=== PATIENT | male | born 1965 | race Caucasian/White ===

== ENCOUNTER 2017-01-16 01:22 | Emergency (ER) | payer SELFPAY ==
[~2017-01-16] VITALS: Ht 177.8 cm; Wt 72.6 kg
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
[2017-01-16] MEDS ORDERED: IBUPROFEN 600 MG TABLET PO ONE ×2 (04:21→04:30)
--- NOTE | 2017-01-16 04:24 | NUR ---
MEDICATED PATIENT ORDERED BY DR WHITING.
--- NOTE | 2017-01-16 05:54 | NUR ---
Patient discharged to home in stable condition. Written and verbal after care instructions given. Patient verbalizes understanding of instruction. Patient is ambulatory with a steady gait, no further complaints.
[2017-01-16 05:56] VITALS: BP 137/82
== END 2017-01-16 05:58 | disposition home or self-care (01) ==
LOC: ER 01:24
DX: M54.5 Low back pain (principal); V43.52XA Car driver injured in collision with other type car in traffic accident, initial encounter; Y93.89 Activity, other specified; Y92.89 Other specified places as the place of occurrence of the external cause; Y99.9 Unspecified external cause status
CPT/HCPCS: 72110-TC; A4606; Z7610